=== PATIENT | female | born 1970 | race Caucasian/White ===

== ENCOUNTER 2017-07-15 17:47 | Emergency (ER) | payer OTHER, MEDICAID ==
[~2017-07-15] VITALS: Ht 165.1 cm; Wt 136.1 kg
[~2017-07-15 17:47] MED LIST: ACETAMINOPHEN-1 EAC1 PO; ASPIRIN81 M2 PO; BENTYL20 MG PO; COUMADIN 10MG T10 M1 PO; HYDROCODONE-AP1 EAC6 PO; KEFLEX500 M1 PO; LOPRESSOR25 PO; LOPRESSOR50 PO; MEDROLDOSEPACK PO; NOHOMEMEDICATIONS; PEPCID20 MG PO; PROAIR HFA8.5 GM INH; PROMETHAZINE D480 ML PO; PROMETHAZINE12.5 M1 PO; TESSALON PERLE100 MG PO; VENTOLIN HFA 1818 GM INH; ZOFRAN4 MG PO; ZPAK PO
[2017-07-15] MEDS ORDERED: CLARITIN10 MG PO (18:00)
[2017-07-15 18:11] LABS: URINE BILIRUBIN NEGATIVE (Negative); URINE BLOOD NEGATIVE (Negative); URINE CLARITY CLEAR; URINE COLOR YELLOW; URINE GLUCOSE-RANDOM NEGATIVE (Negative); URINE KETONES NEGATIVE (Negative); URINE LEUKOCYTES-REFLEX NEGATIVE (Negative); URINE NITRITE-REFLEX NEGATIVE (Negative); URINE PROTEIN TRACE (Negative); URINE SPECIFIC GRAVITY 1.025 (1.005-1.030); URINE UROBILINOGEN 0.2 E.U./dl (0.2-1.0)
[2017-07-15 18:22] LABS: ABSOLUTE EOSINOPHILS 0.3 thou/uL (0.0-0.7); ABSOLUTE LYMPHOCYTES 2.1 thou/uL (0.8-5.3); ABSOLUTE MONOCYTES 0.4 thou/uL (0.0-1.2); BASOPHILS 0.7 %; EOSINOPHILS 3.6 %; HEMATOCRIT 42.5 % (37.0-47.0); HEMOGLOBIN 14.8 gm/dL (12.0-15.0); LYMPHOCYTES 30.8 %; MCH 30.3 pg (26.0-34.0); MCHC 34.9 g/dL (28.0-37.0); MONOCYTES 6.4 %; MPV 7.2 fl. (7.2-11.1); NUCLEATED RBCS 0 /100WBC; PLATELET COUNT* 237 thou/uL (150-400); POLYS 58.5 %; RBC 4.88 mil/uL (4.20-5.00); RDW-CV 13.2 % (10.5-14.5); WBC 6.9 thou/uL (4.0-11.0)
[2017-07-15 18:33] LABS: ANION GAP 9 mmol/L (7-16); BUN 15 mg/dL (7-18); CALCIUM 9.3 mg/dL (8.5-10.1); CHLORIDE 101 mmol/L (98-107); CO2 30 mmol/L (21-32); CREATININE 0.9 mg/dL (0.6-1.3); GLUCOSE 101 mg/dL (70-99); POTASSIUM 3.6 mmol/L (3.5-5.1); SODIUM 140 mmol/L (136-145)
[2017-07-15 18:40] LABS: ALBUMIN 3.9 g/dL (3.4-5.0); ALKALINE PHOSPHATASE 62 U/L (46-116); LIPASE 188 U/L (73-393); SGOT 29 U/L (15-37); SGPT 44 U/L (30-65); TOTAL BILIRUBIN 0.4 mg/dL (<0.1-1.0); TOTAL PROTEIN 7.8 g/dL (6.4-8.2); TROPONIN-I LEVEL <0.06 ng/mL (<0.06)
[2017-07-15 19:51] VITALS: BP 189/101
--- NOTE | 2017-07-16 11:59 | EKG ---
[place] [address] ELECTROCARDIOGRAM REPORT Name: OBRIENEDUARDO Room: [facility]#: [id number] Admission: 07/15/17 Attend Phys: Discharge: 07/15/17 Date of : 72 Report #: [id number] THIS REPORT FOR: //name// [facility] ED Test Date: 2017-07-15 Test Time: 18:19:22 Pat Name: EDUARDO OBRIEN Department: Room: Gender: F Case Technician: Amber TELLEZ : 1970 Requested By: London Hays Order Number: [id number] MD: Romel Richardson Measurements Intervals [place] Rate: 77 P: 73 MI: 180 QRS: 10 QRSD: 96 T: 45 QT: 381 QTc: 432 Interpretive Statements Sinus rhythm consider old anterior infarction Compared to ECG 03/15/2017 19:12:58 no change Electronically Signed On 07-16-2017 11:59:51 [employer] by Romel Richardson [email or web address] <ELECTRONICALLY SIGNED> By: Romel Richardson MD, [facility] 07/16/17 1159 1819 18 Romel Richardson MD, FACC /EPI
== END 2017-07-15 19:52 | disposition home or self-care (01) ==
LOC: M.ERS 17:47
PROVIDERS: Emergency Medicine
DX: R10.12 Left upper quadrant pain (principal); J45.909 Unspecified asthma, uncomplicated; I10 Essential (primary) hypertension; Z90.710 Acquired absence of both cervix and uterus; Z98.890 Other specified postprocedural states; Z86.718 Personal history of other venous thrombosis and embolism